=== PATIENT | male | born 1990 | race Caucasian/White ===

== ENCOUNTER → 2018-04-27 | Outpatient (CLI) | payer OTHER | END | disposition home or self-care (01) | LOC: CFH 15:15 | PROVIDERS: ATTEND Physician Assistant | DX: S82.301A Unspecified fracture of lower end of right tibia, initial encounter for closed fracture (principal); X58.XXXA Exposure to other specified factors, initial encounter; Y93.89 Activity, other specified; Y92.89 Other specified places as the place of occurrence of the external cause; Y99.8 Other external cause status ==

== ENCOUNTER 2018-05-03 06:51 | Day surgery (SDC) | payer OTHER ==
[2018-05-03 07:13] VITALS: BP 129/68
[2018-05-03] MEDS ORDERED: LACTATED RINGERS 1,000 ML IV SCH (07:15)
[2018-05-03] MEDS ORDERED: ACETAMINOPHEN 500 MG TABLET PO ONE (07:30)
[2018-05-03] MEDS ORDERED: GABAPENTIN 300 MG CAPSULE PO ONE (07:30)
[2018-05-03] MEDS ORDERED: NO MEDS (07:41)
[2018-05-03] MEDS ORDERED: FENTANYL PF 100 MCG/2ML ONE (08:07)
[2018-05-03] MEDS ORDERED: MIDAZOLAM 1 MG/ML, 2ML ONE (08:07)
[2018-05-03] MEDS ORDERED: BUPIVACAINE/PF 0.5% ONE ×2 (09:11→10:33)
[2018-05-03] MEDS ORDERED: OXYcodone 5 MG/5 ML ORAL.SOL UDC PO PRN (09:30)
[2018-05-03] MEDS ORDERED: PLEASE ENTER WEIGHT MC SCH (09:30)
[2018-05-03] MEDS ORDERED: SCOPOLAMINE PATCH, 1.5MG PATCH.TD72 TD PRN (09:30)
[2018-05-03] MEDS ORDERED: ALBUTEROL/IPRATROPIUM 2.5MG/0.5MG, 3 ML NPPB PRN (09:30)
[2018-05-03] MEDS ORDERED: ONDANSETRON 2MG/ML, 2ML IV PRN (09:30)
[2018-05-03] MEDS ORDERED: PLEASE ENTER HEIGHT AND WEIGHT MC SCH (09:30)
[2018-05-03] MEDS ORDERED: MIDAZOLAM 1 MG/ML, 2ML IV PRN (09:30)
[2018-05-03] MEDS ORDERED: HYDROmorphone 1 MG/ML, 1ML IV PRN (09:30)
[2018-05-03] MEDS ORDERED: LABETALOL 5MG/ML, 20ML IV PRN (09:30)
[2018-05-03] MEDS ORDERED: FENTANYL PF 100 MCG/2ML IV PRN (09:30)
[2018-05-03] MEDS ORDERED: PROMETHAZINE 25 MG/ML, 1ML IV PRN (09:30)
[2018-05-03] MEDS ORDERED: ONDANSETRON 2MG/ML, 2ML ONE (10:33)
[2018-05-03] MEDS ORDERED: LIDOCAINE-MPF 2% ,5ML ONE (10:33)
[2018-05-03] MEDS ORDERED: PROPOFOL 10 MG/ML, 20ML ONE (10:33)
[2018-05-03] MEDS ORDERED: CEFAZOLIN 1,000 MG ONE (10:33)
[2018-05-03] MEDS ORDERED: DEXAMETHASONE 4 MG/ML, 1ML ONE (10:33)
[2018-05-03] MEDS ORDERED: KETOROLAC 30 MG/1 ML ONE (15:57)
== END 2018-05-03 12:30 ==
LOC: OUT 06:51
PROVIDERS: ATTEND Orthopaedic Surgery Foot and Ankle Surgery
DX: S82.871A Displaced pilon fracture of right tibia, initial encounter for closed fracture (principal); M24.071 Loose body in right ankle; X58.XXXA Exposure to other specified factors, initial encounter; Y93.89 Activity, other specified; Y92.89 Other specified places as the place of occurrence of the external cause; Y99.8 Other external cause status; Z72.89 Other problems related to lifestyle; Z72.0 Tobacco use
CPT/HCPCS: 27827; 29894; 64450; 73600; 76001; C1713; J0690; J1100; J1885; J2250; J2405; J2704; J3010; J3490; J7120